=== PATIENT | male | born 1950 | race Caucasian/White ===

== ENCOUNTER 2025-01-06 09:13 | Outpatient (CLI) | payer MEDICARE, OTHER | END 2025-01-06 09:14 | disposition home or self-care (01) | LOC: NM 09:13 | PROVIDERS: ATTEND Internal Medicine Hematology & Oncology | DX: C67.8 Malignant neoplasm of overlapping sites of bladder (principal) | CPT/HCPCS: 78306; A9503 ==

== ENCOUNTER 2025-01-14 06:49 | Day surgery (SDC) | payer MEDICARE, OTHER ==
[2025-01-13 09:44] VITALS: BMI 25.7
[2025-01-14] MEDS ORDERED: Bupivacaine 0.25% HCL 30 ML VIAL ONE (10:27)
[2025-01-14] MEDS ORDERED: fentaNYL PF 100 MCG/2 ML SYRINGE ONE (10:44)
[2025-01-14] MEDS ORDERED: PHENYLEPHRINE-NS 100 MCG/ML 10 ML SYRINGE ONE (11:14)
[2025-01-14] MEDS ORDERED: Ondansetron PF 4 MG/2 ML Vial ONE (11:15)
== END 2025-01-14 13:05 | disposition home or self-care (01) ==
LOC: SDC 06:49
PROVIDERS: ATTEND Surgery
PROC: 0JH60WZ Insertion of Totally Implantable Vascular Access Device into Chest Subcutaneous Tissue and Fascia, Open Approach (ICD-10-PCS; principal; 2025-01-14)
DX: C67.9 Malignant neoplasm of bladder, unspecified (principal); F41.9 Anxiety disorder, unspecified; Z87.891 Personal history of nicotine dependence; Z98.41 Cataract extraction status, right eye; Z98.42 Cataract extraction status, left eye
CPT/HCPCS: 36561; 71045; J0169; J0665; J1642; J2405; J2704; C1788

== ENCOUNTER 2025-01-17 11:27 | Outpatient (CLI) | payer MEDICARE, OTHER ==
[2025-01-17 12:33] LABS: Glucose, Urine (Dipstick) Negative (Negative); Leukocyte Large (Negative); Protein, Urine (Dipstick) 100 mg/dL (Neg-Trace); Specific Gravity, Urine 1.020 (1.005-1.030)
[2025-01-17 12:36] LABS: #Basophils 0.03 10x3/uL (0.0-0.2); #Eosinophils 0.29 10x3/uL (0.0-0.7); #Monocytes 0.53 10x3/uL (0.11-0.59); #Neutrophils 3.27 10x3/uL (1.40-6.50); %Basophils 0.5 % (0.0-1.0); %Eosinophils 5.1 % (0.0-10.0); %Lymphocytes 27.6 % (21.0-51.0); %Monocytes 9.3 % (0.0-10.0); %Neutrophils 57.2 % (42.0-75.0); Hematocrit 41.6 % (42.0-52.0); Hemoglobin 13.3 g/dL (14.0-18.0); Mean Corpuscular Hemoglobin 32.8 pg (27.0-31.0); Mean Corpuscular Volume 102.5 fL (78.0-98.0); Platelet Count 175 10x3/uL (130-400); Red Blood Cell (RBC) Count 4.06 mill/uL (4.70-6.10); White Blood Cell (WBC) Count 5.72 10x3/uL (4.8-10.8)
[2025-01-17 12:41] LABS: RBC/HPF Greater than 50 HPF (0-3); WBC/HPF Greater than 50 HPF (0-3)
[2025-01-17 12:42] LABS: Bacteria/HPF 1+ HPF (None Seen)
[2025-01-17 12:50] LABS: Anion Gap 11 mmol/L (10-20); BUN (Urea Nitrogen) 18 mg/dL (8.4-25.7); Calc. Creatinine Clearance 0 mL/min (70-130); Calcium 9.6 mg/dL (7.8-10.44); Carbon Dioxide 31 mmol/L (23-31); Chloride 100 mmol/L (98-107); Glucose 98 mg/dL (83-110); INR-International Normal Ratio 1.0; Potassium 4.7 mmol/L (3.5-5.1); Prothrombin Time 13.6 sec (12.0-14.7); Sodium 137 mmol/L (136-145)
[2025-01-17 12:51] LABS: PTT 35.6 sec (22.9-36.1)
== END 2025-01-17 11:28 | disposition home or self-care (01) ==
LOC: LABBT 11:27
PROVIDERS: ATTEND Urology
DX: Z01.818 Encounter for other preprocedural examination (principal); C67.9 Malignant neoplasm of bladder, unspecified
CPT/HCPCS: 80048; 81001; 85025; 85610; 85730; 87086; 93005; 93010

== ENCOUNTER 2025-01-30 07:03 | Day surgery (SDC) | payer MEDICARE, OTHER ==
[2025-01-17 11:45] VITALS: BMI 25.7
[2025-01-30] MEDS ORDERED: PROPOFOL 20 ML ONE (08:15)
[2025-01-30] MEDS ORDERED: Rocuronium Bromide 10 MG/ML (10ML VIAL) ONE (08:17)
[2025-01-30] MEDS ORDERED: Lidocaine 1% PF 5 ML VIAL ONE (08:17)
[2025-01-30] MEDS ORDERED: Ketamine In 0.9 % NaCl 50 MG/5 ML SYRINGE ONE (10:05)
[2025-01-30] MEDS ORDERED: SUCCINYLCHOLINE/SOD CL,ISO/PF 200 MG/10 ML SYRINGE FS ONE (10:09)
[2025-01-30] MEDS ORDERED: LevoFLOXacin D5W 500 mg (100 mL) BAG ONE (10:27)
[2025-01-30] MEDS ORDERED: Glycopyrrolate 0.2 MG/ML 5 ML SYRINGE ONE (10:28)
[2025-01-30] MEDS ORDERED: Ondansetron PF 4 MG/2 ML Vial ONE ×2 (10:36→14:04)
[2025-01-30] MEDS ORDERED: PHENYLEPHRINE-NS 100 MCG/ML 10 ML SYRINGE ONE (10:40)
[2025-01-30] MEDS ORDERED: SUGAMMADEX SODIUM 200 MG/2 ML VIAL ONE (11:35)
[2025-01-30] MEDS ORDERED: Oxybutynin 5 MG TAB ONE (12:33)
[2025-01-30] MEDS ORDERED: HYDROcodone/Acetaminophen 5/325 mg Tablet ONE (16:40)
== END 2025-01-30 18:50 | disposition home or self-care (01) ==
LOC: SDC 07:03
PROVIDERS: ATTEND Urology
PROC: 0TBB8ZZ Excision of Bladder, Via Natural or Artificial Opening Endoscopic (ICD-10-PCS; principal; 2025-01-30)
PROC: 0T768DZ Dilation of Right Ureter with Intraluminal Device, Via Natural or Artificial Opening Endoscopic (ICD-10-PCS; 2025-01-30)
DX: C67.9 Malignant neoplasm of bladder, unspecified (principal); J44.9 Chronic obstructive pulmonary disease, unspecified; F17.200 Nicotine dependence, unspecified, uncomplicated; Z98.52 Vasectomy status; Z98.41 Cataract extraction status, right eye; Z98.42 Cataract extraction status, left eye; Z90.49 Acquired absence of other specified parts of digestive tract
CPT/HCPCS: 52240; 52332; 74420; A4333; C1769; C2617; J1100; J1956; J2405; J2704; J3010; J3490; Q0162; 88307

== ENCOUNTER 2025-01-30 23:14 | Emergency (ER) | payer MEDICARE, OTHER | END 2025-01-31 04:35 | disposition home or self-care (01) | LOC: ERS 23:14 | DX: R31.9 Hematuria, unspecified (principal); J44.9 Chronic obstructive pulmonary disease, unspecified; Z87.891 Personal history of nicotine dependence | CPT/HCPCS: 51700; 51798 ==